=== PATIENT | male | born 1955 | race Caucasian/White ===

== ENCOUNTER 2016-08-17 12:27 | Emergency (ER) | payer BC ==
[~2016-08-17 12:27] MED LIST: Sterile Water Irrigation 250 ML BOT ONE
[2016-08-17] MEDS ORDERED: Lidocaine 1% w/Epinephrine 1:100K 20 ML VIAL ONE (12:33)
[2016-08-17] MEDS ORDERED: Adacel (T-DAP) 0.5 ML VIAL ONE (13:12)
[2016-08-17] MEDS ORDERED: Acetaminophen/Codeine 30-300mg Tablet ONE (13:12)
== END 2016-08-17 14:04 | disposition home or self-care (01) ==
LOC: MADERS 12:27
DX: S01.01XA Laceration without foreign body of scalp, initial encounter (principal); E11.9 Type 2 diabetes mellitus without complications; W22.8XXA Striking against or struck by other objects, initial encounter
CPT/HCPCS: 12002; 90471; 90715; J2001